=== PATIENT | male | born 1945 | race Caucasian/White ===

== ENCOUNTER 2023-01-23 11:07 | Emergency (ER) | payer OTHER ==
[~2023-01-23] VITALS: Ht 172.7 cm; Wt 61.2 kg
[2023-01-23] MEDS ORDERED: ZYPREXA (11:21)
[2023-01-23] MEDS ORDERED: TRAZODONE (11:21)
[2023-01-23] MEDS ORDERED: OLANZAPINE 10 MG VIAL IM ONE ×4 (11:33→19:15)
[2023-01-23] MEDS ORDERED: LORAZEPAM 2 MG/1 ML VIAL ONE (12:09)
[2023-01-23] MEDS ORDERED: LORAZEPAM 2 MG/1 ML VIAL IM ONE (12:15)
[2023-01-23 12:19] LABS: HEMATOCRIT 37.7 % (36.7-47.1); MEAN CORPUSCULAR HEMOGLOBIN 32.4 uug (23.8-33.4); MEAN CORPUSCULAR VOLUME 92.9 fL (73.0-96.2); PLATELET COUNT (AUTO) 158 K/uL (152-348)
[2023-01-23 12:27] LABS: CARBON DIOXIDE 28 mmol/L (21-32); CHLORIDE 105 mmol/L (98-107); CREATININE 1.6 mg/dL (0.6-1.3); GLUCOSE 108 mg/dL (74-106); POTASSIUM 4.9 mmol/L (3.5-5.1); UREA NITROGEN, BLOOD 24 mg/dL (7-18)
[2023-01-23 12:34] LABS: ETHANOL < 3 MG/DL (0-0)
--- NOTE | 2023-01-23 12:39 | NUR ---
Patient was assisted to hospital gown with 2 security officers. Patient is extremely agitated and combative still. Comfort and safety measures maintained.
[2023-01-23 12:40] LABS: THYROID STIMULATING HORMONE 2.045 mIU/mL (0.358-3.740)
[2023-01-23 12:45] LABS: ALANINE AMINOTRANSFERASE 27 U/L (16-63); ALKALINE PHOSPHATASE 70 U/L (50-136); ASPARTATE AMINOTRANSFERASE 20 U/L (15-37); BILIRUBIN,DIRECT 0.3 mg/dL (0.0-0.2); BILIRUBIN,TOTAL 1.4 mg/dL (0.2-1.0); TOTAL PROTEIN, SERUM 7.3 g/dL (6.4-8.2)
--- NOTE | 2023-01-23 12:56 | NUR ---
Patient is still aggressive and combative. Patient is seen talking and seeing an unseen person to his left side. Reorientation done, monitored closely, still for urine specimen (urinal@bedside) and CT scan at this time.
[2023-01-23 12:57] LABS: ACETAMINOPHEN < 2.0 ug/mL (10-30)
--- NOTE | 2023-01-23 13:35 | NUR ---
Patient is seen still restless and unable to follow simple directions. Patient is monitored closely, still for CT scan & urine specimen. Patient is refusing hot lunch food at this time. Patient drank about 150 ml of cold water earlier.
--- NOTE | 2023-01-23 14:04 | NUR ---
Joel goodmanjonh in ED - 01/23/23 at 1750 by LULA Patient is now medically cleared by ER doctor Vickers. [facility] was called by ER registration staff Shlomo, pending callback.
--- NOTE | 2023-01-23 14:22 | NUR ---
Patient is less restless now & more quiet, his respiration:easy and even, he is moving all extremities. Spouse is at the bedside.
--- NOTE | 2023-01-23 14:47 | NUR ---
Patient went to CT with platform power technicianrober Anderson RN steel pan form placing supervisor Shelley and our hospital cloud security architect Raul in [place] condition.
--- NOTE | 2023-01-23 16:30 | NUR ---
Patient is now medically cleared by ER doctor Rancho. [facility] was called by ER registration staff Shlomo, pending callback.
--- NOTE | 2023-01-23 16:58 | NUR ---
1639pm: [facility] staff Sharon said that this patient needs to be off restraints for 4 hours and be able to ambulate (with/or without assistance) before [facility] can find psychiatric placement for this patient. Dr Vickers notified. 1658pm: Dr Vickers wants to talk to the [facility] doctor again. ER registration/admitting staff Sharda notified.
[2023-01-23 17:21] LABS: *BILIRUBIN,URIN NEGATIVE (NEGATIVE); *BLOOD, URINE 3+ (NEGATIVE); *CLARITY,URINE CLOUDY (CLEAR); *COLOR,URINE DARK YELLOW (YELLOW); *KETONES,URINE TRACE (NEGATIVE); LEUKOCYTE ESTERASE ,URINE 3+ (NEGATIVE); NITRITE, URINE POSITIVE (NEGATIVE); UGLUCOSE NEGATIVE (NEGATIVE)
[2023-01-23 17:45] LABS: *AMPHETAMINE, URINE NEGATIVE (NEGATIVE); *CANNABINOID, URINE POSITIVE (NEGATIVE); *COCCAINE, URINE NEGATIVE (NEGATIVE); *PHENCYCLIDINE SCREEN,URINE NEGATIVE (NEGATIVE)
--- NOTE | 2023-01-23 18:20 | NUR ---
Patient will transfer to outside Facility: [facility] ER Physician: Dr Salcedo Location: ER department RN: nurse Shiela of [facility] ER accepted nursing hands off report ambulance: [facility] ambulance: [facility] ambulance ETA is 1930 [facility] staff: nurse Malave gave the transfer information
--- NOTE | 2023-01-23 19:12 | NUR ---
Patient is getting more agitated now, screaming and yelling at times, Dr Mendoza notified.
--- NOTE | 2023-01-23 19:30 | NUR ---
Maria Del Carmen bear gave SBAR report to [facility] ambulance who will transport boom coy to [place].
--- NOTE | 2023-01-23 19:30 | NUR ---
EMT Ida Valencia of [facility] ambulance unit#[id number] accepted hands off report. Patient will leave ER as soon as possible. Security assistance was requested, endorsed to primer charger Adrian accordingly.
[2023-01-23 22:33] LABS: RBC,URINE 50-80 /HPF (0-3); WBC,URINE 50-80 /HPF (0-3)
[2023-01-23 22:34] LABS: BACTERIA,URINE MODERATE /HPF (NONE SEEN); SQUAMOUS EPITHELIAL CELL,UR FEW /HPF (NONE SEEN)
== END 2023-01-23 19:40 | disposition short-term general hospital (02) ==
LOC: ER 11:07
DX: R41.82 Altered mental status, unspecified (principal); R45.1 Restlessness and agitation; Z79.899 Other long term (current) drug therapy; R07.89 Other chest pain; Z20.822 Contact with and (suspected) exposure to COVID-19
CPT/HCPCS: 80076; 80048; 81001; 84443; 85025; 87426; 84484; 36415; 93005; 71045; 70450; 99285; 96372 ×3; 80299; 80320; 80307; J2060; A4663; G0480; J2358